=== PATIENT | male | born 1935 | race Hispanic/Latino ===

== ENCOUNTER 2017-05-28 12:05 | Inpatient (IN) | payer MEDICARE, OTHER ==
--- NOTE | 2017-05-28 13:36 | RAD ---
HISTORY: Admission film COMPARISON: No prior. FINDINGS: LUNGS: Prominent diffuse increased interstitial lung markings bilaterally with scattered nodular densities throughout both lungs. Prominent consolidative airspace opacification in the mid to lower lung zones with small bilateral pleural effusions. Biapical pleural thickening with upper lobe granulomatous changes. PLEURA: As above. CARDIOVASCULAR: Cardiomegaly. OSSEOUS STRUCTURES: Degenerative changes in the spine and shoulders. VISUALIZED UPPER ABDOMEN: Normal. OTHER FINDINGS: None. IMPRESSION: Prominent diffuse increased interstitial lung markings bilaterally with scattered nodular densities throughout both lungs. Prominent consolidative airspace opacification in the mid to lower lung zones with small bilateral pleural effusions. Biapical pleural thickening with upper lobe granulomatous changes.
[2017-05-28 13:52] LABS: BASO % 0.6 % (0.0-2.0); EOS # 0.1 K/uL (0.0-0.7); EOS % 2.3 % (0.0-4.0); LYMPH # 1.1 K/uL (1.0-4.3); LYMPH % 18.5 % (20.0-40.0); MEAN CELL VOLUME 92.5 fL (80.0-94.0); MEAN CORPUSCULAR HEMOGLOBIN 31.6 pg (27.0-31.0); MEAN CORPUSCULAR HGB CONC 34.1 g/dL (33.0-37.0); MONO # 0.8 K/uL (0.0-0.8); MONO % 14.3 % (0.0-10.0); RED CELL DISTRIBUTION WIDTH 13.3 % (11.5-14.5); WHITE BLOOD COUNT 5.7 K/uL (4.8-10.8)
[2017-05-28 14:06] LABS: INR 1.1
[2017-05-28 14:07] LABS: ALB/GLOB RATIO 1.1 (1.0-2.1); ALKALINE PHOSPHATASE 99 U/L (38-126); ALT/SGPT 42 U/L (21-72); AST/SGOT 26 U/L (17-59); BILIRUBIN,TOTAL 0.9 mg/dL (0.2-1.3); BLOOD UREA NITROGEN 14 mg/dL (9-20); CALCIUM 8.6 mg/dl (8.6-10.4); CARBON DIOXIDE 30 mmol/L (22-30); CHLORIDE 99 mmol/L (98-107); CHOLESTEROL 110 mg/dL (0-199); GFR AFRICAN-AMERICAN > 60; GLUCOSE,RANDOM 87 mg/dL (75-110); POTASSIUM 4.8 mmol/L (3.6-5.2); SODIUM 140 mmol/L (132-148); TOTAL PROTEIN 6.9 g/dL (6.3-8.3)
[2017-05-28 14:12] LABS: RBC URINE < 1 /hpf (0-3); URINE BILIRUBIN NEGATIVE (NEGATIVE); URINE BLOOD NEGATIVE (NEGATIVE); URINE COLOR Yellow (YELLOW); URINE GLUCOSE (UA) NORMAL (Normal); URINE KETONE NEGATIVE (NEGATIVE); URINE LEUKOCYTE ESTERASE NEG Leu/uL (Negative); URINE PROTEIN NEGATIVE (NEGATIVE); URINE UROBILINOGEN NORMAL mg/dL (0.2-1.0); WBC URINE 1 /hpf (0-5)
--- NOTE | 2017-05-28 14:13 | C.PDOC ---
History Of Present Illness 81 y/o male with Hx of Vertigo presents to ED for evaluation of frequent falls for 3 days secondary to dizziness. Patient states he feels vertiginous prior to falls. Patient denies loc, head injury, nausea, vomiting or any other complaints at this time. Time Seen by Provider: 05/28/17 13:06 Chief Complaint (Nursing): Dizziness/Lightheaded History Per: Patient History/Exam Limitations: no limitations Onset/Duration Of Symptoms: Days Current Symptoms Are (Timing): Still Present Past Medical History Reviewed: Historical Data, Nursing Documentation, Vital Signs Vital Signs: Last Vital Signs Temp 97.9 F 05/28/17 12:22 Pulse 63 05/28/17 12:22 Resp 20 05/28/17 12:22 BP 154/81 H 05/28/17 12:22 Pulse Ox 98 05/28/17 14:25 Surgical History: No Surg Hx Family History: States: No Known Family Hx - Social History Hx Alcohol Use: No Hx Substance Use: No Review Of Systems Except As Marked, All Systems Reviewed And Found Negative. Constitutional: Negative for: Fever, Chills Eyes: Negative for: Vision Change Cardiovascular: Negative for: Chest Pain Respiratory: Negative for: Shortness of Breath Gastrointestinal: Negative for: Nausea, Vomiting Skin: Negative for: Rash Neurological: Positive for: Dizziness. Negative for: Weakness, Numbness Physical Exam - Physical Exam Appears: Non-toxic, No Acute Distress Skin: Warm, Other (Abrasion to left tibia, mild contusion to left lateral rib non tender) Head: Atraumatic Eye(s): bilateral: Normal Inspection Oral Mucosa: Moist Neck: Normal ROM, Supple Chest: Symmetrical Cardiovascular: Rhythm Regular, No Murmur Respiratory: Normal Breath Sounds, No Rales, No Rhonchi, No Wheezing Gastrointestinal/Abdominal: Soft, No Tenderness, No Guarding, No Rebound Neurological/Psych: Oriented x3 ED Course And Treatment - Laboratory Results Result Diagrams: 05/28/17 13:48 05/28/17 13:48 Lab Interpretation: Normal (UA neg.) ECG: Interpreted By Me ECG Rhythm: Sinus Rhythm, R BBB ECG Interpretation: Normal Rate From EC O2 Sat by Pulse Oximetry: 98 (RA) Pulse Ox Interpretation: Normal - Radiology CXR: Interpreted by Me, Read By Radiologist CXR Interpretation: Yes: Infiltrates (+ b/l infiltrates?) Progress Note: rocephin, azithromycin, Reevaluation Time: 15:30 Reassessment Condition: Improved - Physician Consult Information Outcome Of Conversation: 1330, 1430, 1520, d/w Dr. Florez, covering pt's for Dr. Carolina Lewis, ok to Obs. Medical Decision Making Medical Decision Making: Discussed with Dr. Florez who wants patient to be admitted for further evaluation 1530: ? b/l pna provoking old vertigo s/s. w/u neg, CXR + b/l infiltrates, abx for CAP started empirically. Disposition Doctor Will See Patient In The: Hospital Counseled Patient/Family Regarding: Studies Performed, Diagnosis - Disposition Disposition: HOSPITALIZED Disposition Time: 15:31 Condition: GOOD Forms: [facility] (Setswana) - Clinical Impression Clinical Impression: Vertigo, Pneumonia - Scribe Statement The provider has reviewed the documentation as recorded by the Zelalemibdafne Mcarthur All medical record entries made by the Zelalemibdafne were at my direction and personally dictated by me. I have reviewed the chart and agree that the record accurately reflects my personal performance of the history, physical exam, medical decision making, and the department course for this patient. I have also personally directed, reviewed, and agree with the discharge instructions and disposition.
[2017-05-28] MEDS ORDERED: Azithromycin 500 MG in Sodium Chloride 0.9% 250 ML IV STA (14:27)
[2017-05-28] MEDS ORDERED: cefTRIAXone IV 1 gm in Dextros 50 ML IV ONE (14:27)
[2017-05-28] MEDS ORDERED: Vancomycin 1 GM 0 GM/0 ML BAG IVPB ONE (15:58)
[2017-05-28] MEDS ORDERED: cefTRIAXone IV 1 gm in Dextros 50 ML IVPB ONE (15:59)
--- NOTE | 2017-05-28 16:02 | CT ---
PROCEDURE: CT HEAD WITHOUT CONTRAST. HISTORY: falls, dizzy, ? bleed/SDH COMPARISON: None available. TECHNIQUE: Axial computed tomography images were obtained through the head/brain without intravenous contrast. Radiation dose: Total exam DLP = 838 mGy-cm. This CT exam was performed using one or more of the following dose reduction techniques: Automated exposure control, adjustment of the mA and/or kV according to patient size, and/or use of iterative reconstruction technique. FINDINGS: HEMORRHAGE: No intracranial hemorrhage. BRAIN: No mass effect or edema. Mild diffuse cerebral atrophy chronic microangiopathy are identified. No definite cortical lucency is appreciate suggests an acute or subacute brain infarction at this time. No suspicious extra-axial fluid collection identified. Posterior fossa contents unremarkable as well as the brainstem. VENTRICLES: Unremarkable. No hydrocephalus. CALVARIUM: Unremarkable. PARANASAL SINUSES: Unremarkable as visualized. No significant inflammatory changes. MASTOID AIR CELLS: Unremarkable as visualized. No inflammatory changes. OTHER FINDINGS: None. IMPRESSION: Mild age related neuro degenerative changes are identified without definite acute intracranial findings. Consider follow-up CT or MRI as clinically warranted.
[2017-05-28] MEDS ORDERED: Azithromycin 500mg/250ML NS 500 MG/250 ML BAG IVPB ONE (16:32)
--- NOTE | 2017-05-28 18:37 | CP.PCM.CON ---
History of Present Illness - History of Present Illness History of Present Illness: INFECTIOUS DISEASE CONSULT; HPI; .81-year-old male who presented to [facility] on 05/28/17 with history of frequent falls and vertigo for 3 days prior to admission. Patient states he was sitting on a chair and when he got up he felt dizzy and fell. Presently complaining of cough and rib cage pain left-sided and a small laceration he sustained on his right lower extremity. Patient also states he did not lose his consciousness or had any head injury. Denies any nausea vomiting. Patient also states he was complaining of sore throat and some congestion and he was prescribed by mouth Zithromax by his private M.D. Chest x-ray on admission showed consolidated airspace opacification mid to lower lung zones and small bilateral pleural effusions. Some apical pleural thickening was also noted consistent with old granulomatous disease.CT HEAD ON ADMISSION WAS UNREMARKABLE WITH NO EVIDENCE OFF SUBDURAL, INFARCT OR HEMORRHAGE. Patient denies any previous major medical problems and states he was not on any medications. Patient denies any recent history of sick contacts or recent travel. Patient was given IV Rocephin and Zithromax one dose in the ER.. Infectious disease consultation requested by PMD for pneumonia/sepsis. PMH; NEGATIVE FOR DIABETES MELLITUS, HTN, ASTHMA, COPD, SEIZURE DISORDER. Surgical History: No Surg Hx Family History: States: No Known Family Hx - Social History Hx Alcohol Use: No Hx Substance Use: No ALLERGY; NKA Review of Systems - Constitutional Constitutional: absent: Chills, Fever, Headache - EENT Eyes: absent: Blurred Vision, Floaters, Photophobia, Other Visual Disturbances, Loss of Vision Nose/Mouth/Throat: Nasal Congestion, Post Nasal Drip, Sore Throat - Cardiovascular Cardiovascular: Leg Ulcers (right leg excoriation which is dry.). absent: Chest Pain, Pedal Edema - Respiratory Respiratory: Cough, Pain with Coughing. absent: Dyspnea on Exertion, Excessive Mucous Production - Gastrointestinal Gastrointestinal: absent: Abdominal Pain, Nausea, Vomiting - Genitourinary Genitourinary: absent: Dysuria, Hematuria, Nocturia, Urinary Hesitance - Neurological Neurological: Dizziness, Vertigo. absent: Headaches, Syncope - Hematologic/Lymphatic Hematologic: As Per HPI. absent: Lymphadenopathy Past Patient History - Past Social History Smoking Status: Never Smoked - PSYCHIATRIC Hx Substance Use: No - SURGICAL HISTORY Hx Surgeries: No Meds Allergies/Adverse Reactions: Allergies Allergy/AdvReac Type Severity Reaction Status Date / Time No Known Allergies Allergy Verified 05/28/17 12:43 Physical Exam - Constitutional Appears: No Acute Distress - Head Exam Head Exam: NORMAL INSPECTION - Eye Exam Eye Exam: EOMI, PERRL. absent: Nystagmus - ENT Exam ENT Exam: Normal Oropharynx - Neck Exam Neck exam: Positive for: Normal Inspection. Negative for: Meningismus - Respiratory Exam Respiratory Exam: Rhonchi (bilaterally.), NORMAL BREATHING PATTERN - Cardiovascular Exam Cardiovascular Exam: REGULAR RHYTHM, +S1, +S2 - GI/Abdominal Exam GI & Abdominal Exam: Normal Bowel Sounds, Soft. absent: Organomegaly - Extremities Exam Extremities exam: Positive for: pedal pulses present. Negative for: calf tenderness, pedal edema - Neurological Exam Neurological exam: Alert, CN II-XII Intact, Reflexes Normal - Psychiatric Exam Psychiatric exam: Normal Mood - Skin Skin Exam: Normal Color, Warm Results - Vital Signs Recent Vital Signs: Last Vital Signs Temp 97.9 F 05/28/17 12:22 Pulse 63 05/28/17 12:22 Resp 20 05/28/17 12:22 BP 154/81 H 05/28/17 12:22 Pulse Ox 98 05/28/17 15:32 - Labs Result Diagrams: 05/28/17 13:48 05/28/17 13:48 - Imaging and Cardiology Chest x-ray Status: Report reviewed by me (see reports.) Assessment & Plan (1) Pneumonia Status: Acute (2) Vertigo Status: Acute - Assessment and Plan (Free Text) Plan: PLAN; ESR, CRP. THROAT CULTURE RAPID INFLUENZA ANTIGEN TEST. ATYPICAL TITERS. SPUTUM gRAM STAIN AND CULTURE. CONTINUE iv ROCEPHIN 1 G EVERY 12 HOURLY. 05/28/17. CONTINUE iv ZITHROMAX 500 MG ONCE DAILY.05/28/17. X-RAY RIB CAGE LEFT-SIDED RULE OUT FRACTURE RIBS LEFT CHEST WALL. DIZZINESS WORKUP PER PMD.
--- NOTE | 2017-05-28 20:08 | CP.PCM.HP ---
History of Present Illness - History of Present Illness History of Present Illness: COMPREHENSIVE HISTORY & PHYSICAL EXAM HPI PATIENT IS AN 81 YEARS OLD MALE WITH NO MAJOR HISTORY IN THE PAST HAS A HISTORY OF VERTIGO AND FREQUENT FALLS. RECENTLY PATIENT'S FALL IS INCREASED IN INTENSITY AND SEVERITY. PATIENT ALSO RECENTLY ALSO SEEN BY PMD AND WAS GIVEN ZITHROMAX AND ANTICONGESTIVE MEDICATION. PATIENT IS ALSO COMPLAINING OF UPPER RESPIRATORY TRACT CONGESTION WITH SORE THROAT AND SLIGHT POSTNASAL DRIP. TODAY PATIENT HAD NEAR SYNCOPAL EPISODE WAS FOUND ON THE FLOOR BROUGHT TO THE EMERGENCY ROOM. WORKUP IN THE ER SHOWED PATIENT HAD BILATERAL LOWER LOBE INFILTRATES, NORMAL. CAT SCAN OF THE HEAD AND NO FRACTURES. PAST HIST. No history of hypertension, diabetes, coronary artery disease, stroke, cancers or any operations. PERSONAL HIST: Smoking. N Alcohol. N Allergy N Travel_- . FAMILY HIST : ROS : Constitutional: Negative for weight change, chills, night sweats, fatigue and usage of assist device. Eyes: Negative for redness, swelling, itching, discharge, vision changes, blurry vision, double vision, glaucoma, cataracts, Ears: Negative for hearing loss, ringing, , tinnitus, vertigo Nose: Negative for rhinorrhea, stuffiness, sniffing, itching, postnasal drip, discoloration, nasal congestion and epistaxis. Throat: Negative for throat clearing, sore throat, hoarseness, difficulty swallowing and difficulty speaking. Respiratory: pos for cough, chest tightness, sputum or phlegm, no chronic cough, hemoptysis, wheezing, snoring at night, pleuritic chest pain and daytime somnolence. Cardiovascular: Negative for chest pain, palpitations, orthopnea, PND, Edema of legs, leg cramps, angina, claudication, , irregular heartbeat, Neurology: Negative for irritability, muscle weakness, numbness and tingling, seizures, tremors, migraines, slurred speech, memory loss, mood changes, recurrent headaches Gastrointestinal: Negative for difficulty swallowing, diarrhea, constipation, black stools, rectal bleeding, nausea, flatulence, reflux, poor appetite, changes in bowel habits, abdominal pain Genitourinary: Negative for frequent urination, hematuria, discharge, incontinence, urinary retention, frequent UTI, Psychiatric: Negative for depression, anxiety/panic, suicidal tendencies, Musculoskeletal: Negative for swollen joints, back pain, , neck pain, morning stiffness of joints, . Skin: Negative for rash, ulcers, itching, dry skin and pigmented lesions. P/E: Constitutional: Appears stated age and in no apparent distress. Head: Normocephalic. Ears: External ear canals patent without inflammation. Tympanic membranes intact with normal light reflex and landmark. Eyes: Pupils are central, bilaterally equal, symmetrical and reacts to light with normal movements and no icterus or pallor. Nose: External nares are patent. Mucosa is pink Mouth-Throat: Good general appearance and condition. No post-pharyngeal/oropharyngeal erythema and tonsillar hypertrophy. Good dental hygiene. Neck-Lymphatic: Neck is supple with normal ROM, no thyromegaly, lymph nodes or masses. JVD is normal with no carotid bruit. Lungs bilateral basal rhonchi. Cardiovascular: S1 and S2 are normal with no murmurs, gallops and rub. GI Exam: No hepatomegaly. Abdomen is soft and non-tender. No Organomegaly , masses or hernias are evident and bowel sounds are normal and active. Neurology: Higher function and all cranial nerves intact, with no gross motor or sensory deficit. Superficial and deep reflexes are normal with downwards planters. No cerebellar deficit with normal gait. Musculoskeletal: No tender spots with normal curvature of the spine with no swelling or restricted ROM of the small and large joints. Extremities: Homans sign absent. Intact pulses with no pitting edema, calf tenderness or skin color changes. Skin: No rash, eruptions or abnormal skin pigmentation LAB/RADIOLOGY: ASSESMENT : #1 bilateral pneumonia, etiology to be determined. #2 frequent falls with near syncopal episodes, with a history of vertigo. Plan. ID evaluation. IV antibiotics and neurology workup. Present on Admission - Present on Admission Any Indicators Present on Admission: No Past Patient History - Past Social History Smoking Status: Never Smoked - PSYCHIATRIC Hx Substance Use: No - SURGICAL HISTORY Hx Surgeries: No Meds Allergies/Adverse Reactions: Allergies Allergy/AdvReac Type Severity Reaction Status Date / Time No Known Allergies Allergy Verified 05/28/17 12:43 Results - Vital Signs Recent Vital Signs: Last Vital Signs Temp 99.2 F 05/28/17 19:15 Pulse 93 H 05/28/17 19:15 Resp 18 05/28/17 19:15 BP 133/69 05/28/17 19:15 Pulse Ox 97 05/28/17 19:15 - Labs Result Diagrams: 05/28/17 13:48 05/28/17 13:48
[2017-05-28] MEDS ORDERED: Pneumococcal 23-Valent Vaccine IM ONE (22:33)
[2017-05-29 08:20] LABS: BASO % 0.4 % (0.0-2.0); EOS # 0.1 K/uL (0.0-0.7); EOS % 1.3 % (0.0-4.0); HEMATOCRIT 35.8 % (35.0-51.0); LYMPH # 1.2 K/uL (1.0-4.3); LYMPH % 19.1 % (20.0-40.0); MEAN CELL VOLUME 92.4 fL (80.0-94.0); MEAN CORPUSCULAR HEMOGLOBIN 31.4 pg (27.0-31.0); MEAN PLATELET VOLUME 8.2 fL (7.2-11.7); MONO % 16.2 % (0.0-10.0); RED CELL DISTRIBUTION WIDTH 13.2 % (11.5-14.5); WHITE BLOOD COUNT 6.3 K/uL (4.8-10.8)
[2017-05-29 08:29] LABS: ALB/GLOB RATIO 1.1 (1.0-2.1); ALKALINE PHOSPHATASE 91 U/L (38-126); ALT/SGPT 38 U/L (21-72); AST/SGOT 23 U/L (17-59); BLOOD UREA NITROGEN 13 mg/dL (9-20); CALCIUM 8.5 mg/dl (8.6-10.4); CARBON DIOXIDE 25 mmol/L (22-30); CHLORIDE 101 mmol/L (98-107); GFR AFRICAN-AMERICAN > 60; GLUCOSE,RANDOM 85 mg/dL (75-110); POTASSIUM 4.2 mmol/L (3.6-5.2); SODIUM 139 mmol/L (132-148); TOTAL PROTEIN 6.4 g/dL (6.3-8.3)
[2017-05-29] MEDS: Azithromycin 500 MG in Sodium Chloride 0.9% 250 ML IVPB SCH (10:08)
--- NOTE | 2017-05-29 12:37 | CP.PCM.PN ---
Subjective - Date & Time of Evaluation Date of Evaluation: 05/29/17 Time of Evaluation: 12:35 - Subjective Subjective: CHIEF COMPLAINTS TODAY : MILD COUGH VERTIGO ON WALKING ROS. HEENT : N. Resp : No wheezing ,pleuritic CP ,or hemoptysis Cardio : No anginal CP, PND, orthopnea, palpitation GI : No abd.pain, n/v ,diarrhea or GI bleeding . ACADEMIC ADVISER : No headache, vertigo, focal deficit. Musculoskel : No joint swelling , Derm : No rash Psych : Normal affect. Ext : No swelling ,calf pain PE. Pt. is alert awake in no distress. V.S As noted in the chart Head ,ear nose,throat and eyes : Normal. Neck : Supple with normal carotids. Lungs: BASAL RONCHI Heart : S1 & S2 normal with S4. No murmur. Abd : Soft non tender with normal bowel sounds. Neuro : Moves all ext. with no localized deficit. Ext : No edema with intact pulses.Non tender calves Derm : No rashes or decubitus ulcer. LABS/RADIOLOGY: TNI NEG ASSESSMENT/PLAN : IV AB NEB PRN Objective - Vital Signs/Intake and Output Vital Signs (last 24 hours): Temp Pulse Resp BP Pulse Ox 97 F L 71 21 145/74 95 05/29/17 08:41 05/29/17 08:41 05/29/17 08:41 05/29/17 08:41 05/29/17 08:41 Intake and Output: 05/29/17 05/29/17 11:59 23:59 Intake Total 340 Balance 340 - Medications Medications: Current Medications Heparin Sodium (Porcine) (Heparin) 5,000 units SC Q12 [facility] Last Admin: 05/29/17 10:10 Dose: 5,000 units Azithromycin 500 mg/ Sodium (Chloride) 250 mls @ 250 mls/hr IVPB DAILY [facility] Last Admin: 05/29/17 10:08 Dose: 250 mls/hr Ceftriaxone Sodium 1 gm/ (Sodium Chloride) 100 mls @ 100 mls/hr IVPB Q12H [facility] Last Admin: 05/29/17 02:59 Dose: 100 mls/hr Pneumococcal Polyvalent Vaccine (Pneumovax 23 Vaccine) 0.5 ml IM .ONCE ONE Stop: 05/31/17 10:01 Primidone (Mysoline) 50 mg PO Q12H [facility] Last Admin: 05/29/17 10:08 Dose: 50 mg - Labs Labs: 05/29/17 08:09 05/29/17 08:09 PT 12.4 SECONDS (9.7-12.2) H 05/28/17 13:48 INR 1.1 05/28/17 13:48 APTT 38 SECONDS (21-34) H 05/28/17 13:48
--- NOTE | 2017-05-29 14:36 | RAD ---
PROCEDURE: Radiographs of the Chest and Left Ribs. HISTORY: S/P FALL R/O RIB FRACTURE COMPARISON: 05/28/2017 at 1325 hour. TECHNIQUE: Frontal radiograph of the chest and multiple oblique radiographs of the left ribs were obtained. FINDINGS: LEFT RIBS: No fracture or focal lesion visualized. Generalized osteopenia limits optimal evaluation LUNGS: The vague fine diffuse interstitial increased lung markings are renoted. Linear discoid atelectasis and/or scarring at at each lung base noted PLEURA: No pneumothorax or pleural fluid. Vague opacities/ inferred pleural thickening reaction right lateral eron thorax. For this if further evaluation is needed consider CT chest . Biapical pleural thickening. Calcified granulomatous lymph nodes and are central calcified granuloma CARDIOVASCULAR: Minimal cardiomegaly probable. No pulmonary vascular congestion. The right hilum and right infrahilar soft tissues appear slightly more prominent on this exam could be technical study That is not as conspicuous/ suggested on the prior study OTHER FINDINGS: None. IMPRESSION: . No left rib fracture. Nonspecific pulmonary and/or pleural changes as above
--- NOTE | 2017-05-29 14:56 | CARD ---
APPROVED REPORT EKG Measurement Heart [id number] <Conclusion> Normal sinus rhythm Right bundle branch block Abnormal ECG
--- NOTE | 2017-05-29 15:32 | CP.PCM.PN ---
Subjective - Date & Time of Evaluation Date of Evaluation: 05/29/17 Time of Evaluation: 15:32 - Subjective Subjective: CHIEF COMPLAINTS TODAY : afebrile, c/o dizziness on ambulating. Mild cough and sore throat. Denies any expectoration. Left rib cage tenderness ROS. HEENT : N. Resp : No wheezing ,pleuritic CP ,or hemoptysis Cardio : No anginal CP, PND, orthopnea, palpitation GI : No abd.pain, n/v ,diarrhea or GI bleeding . 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 Musculoskel : No joint swelling , Derm : No rash Psych : Normal affect. Ext : No swelling ,calf pain PE. Pt. is alert awake in no distress. V.S As noted in the chart Head ,ear nose,throat and eyes : Normal. Neck : Supple with normal carotids. Lungs: BASAL RONCHI Heart : S1 & S2 normal with S4. No murmur. Abd : Soft non tender with normal bowel sounds. Neuro : Moves all ext. with no localized deficit. Ext : No edema with intact pulses.Non tender calves Derm : No rashes or decubitus ulcer. LABS/RADIOLOGY: Influenza A and B antigen negative .Mycoplasma IgM negative. blood cultures negative to date. TNI NEG x-ray left rib cage -ve fracture./Osteopenia. Objective - Vital Signs/Intake and Output Vital Signs (last 24 hours): Temp Pulse Resp BP Pulse Ox 97 F L 73 21 164/86 H 98 05/29/17 08:41 05/29/17 12:30 05/29/17 08:41 05/29/17 12:30 05/29/17 12:30 Intake and Output: 05/29/17 05/29/17 06:59 18:59 Intake Total 340 1030 Balance 340 1030 - Medications Medications: Current Medications Heparin Sodium (Porcine) (Heparin) 5,000 units SC Q12 [facility] Last Admin: 05/29/17 10:10 Dose: 5,000 units Azithromycin 500 mg/ Sodium (Chloride) 250 mls @ 250 mls/hr IVPB DAILY [facility] Last Admin: 05/29/17 10:08 Dose: 250 mls/hr Ceftriaxone Sodium 1 gm/ (Sodium Chloride) 100 mls @ 100 mls/hr IVPB Q12H [facility] Last Admin: 05/29/17 14:21 Dose: 100 mls/hr Pneumococcal Polyvalent Vaccine (Pneumovax 23 Vaccine) 0.5 ml IM .ONCE ONE Stop: 05/31/17 10:01 Primidone (Mysoline) 50 mg PO Q12H [facility] Last Admin: 05/29/17 10:08 Dose: 50 mg - Labs Labs: 05/29/17 08:09 05/29/17 08:09 PT 12.4 SECONDS (9.7-12.2) H 05/28/17 13:48 INR 1.1 05/28/17 13:48 APTT 38 SECONDS (21-34) H 05/28/17 13:48 Assessment and Plan (1) Pneumonia Status: Acute (2) Vertigo Status: Acute - Assessment and Plan (Free Text) Plan: CONTINUE iv ROCEPHIN 1 G EVERY 12 HOURLY. 05/28/17. CONTINUE iv ZITHROMAX 500 MG ONCE DAILY.05/28/17. continue nebulizer therapy. DIZZINESS WORKUP PER PMD.
[2017-05-29 16:10] VITALS: RESP 20
[2017-05-30 07:46] LABS: BASO % 0.4 % (0.0-2.0); EOS # 0.1 K/uL (0.0-0.7); EOS % 1.4 % (0.0-4.0); HEMATOCRIT 35.9 % (35.0-51.0); LYMPH # 1.3 K/uL (1.0-4.3); LYMPH % 19.7 % (20.0-40.0); MEAN CELL VOLUME 93.2 fL (80.0-94.0); MEAN CORPUSCULAR HEMOGLOBIN 31.3 pg (27.0-31.0); MEAN CORPUSCULAR HGB CONC 33.6 g/dL (33.0-37.0); MEAN PLATELET VOLUME 8.2 fL (7.2-11.7); MONO % 15.3 % (0.0-10.0); RED CELL DISTRIBUTION WIDTH 13.4 % (11.5-14.5); WHITE BLOOD COUNT 6.5 K/uL (4.8-10.8)
[2017-05-30 08:13] LABS: CHLORIDE 102 mmol/L (98-107); SODIUM 136 mmol/L (132-148)
[2017-05-30 08:14] LABS: POTASSIUM 4.2 mmol/L (3.6-5.2)
[2017-05-30 08:16] LABS: AST/SGOT 28 U/L (17-59); BILIRUBIN,TOTAL 0.8 mg/dL (0.2-1.3); CARBON DIOXIDE 26 mmol/L (22-30); GFR AFRICAN-AMERICAN > 60
[2017-05-30 08:17] LABS: ALKALINE PHOSPHATASE 94 U/L (38-126); ALT/SGPT 37 U/L (21-72); BLOOD UREA NITROGEN 13 mg/dL (9-20); CALCIUM 8.1 mg/dl (8.6-10.4); GLUCOSE,RANDOM 91 mg/dL (75-110); TOTAL PROTEIN 6.2 g/dL (6.3-8.3)
[2017-05-30] MEDS ORDERED: Perflutren Lipid Microsphere 1.5 ML SUS IV ONE (09:25)
[2017-05-30] MEDS: Azithromycin 500 MG in Sodium Chloride 0.9% 250 ML IVPB SCH (10:59)
--- NOTE | 2017-05-30 13:09 | CP.PCM.PN ---
Subjective - Date & Time of Evaluation Date of Evaluation: 05/30/17 Time of Evaluation: 13:09 - Subjective Subjective: CHIEF COMPLAINTS TODAY : MILD COUGH VERTIGO ON WALKING ROS. HEENT : N. Resp : No wheezing ,pleuritic CP ,or hemoptysis Cardio : No anginal CP, PND, orthopnea, palpitation GI : No abd.pain, n/v ,diarrhea or GI bleeding . PERSONAL CARER : No headache, vertigo, focal deficit. Musculoskel : No joint swelling , Derm : No rash Psych : Normal affect. Ext : No swelling ,calf pain PE. Pt. is alert awake in no distress. V.S As noted in the chart Head ,ear nose,throat and eyes : Normal. Neck : Supple with normal carotids. Lungs: BASAL RONCHI Heart : S1 & S2 normal with S4. No murmur. Abd : Soft non tender with normal bowel sounds. Neuro : Moves all ext. with no localized deficit. Ext : No edema with intact pulses.Non tender calves Derm : No rashes or decubitus ulcer. LABS/RADIOLOGY: TNI NEG ASSESSMENT/PLAN : IV AB CT CHEST Objective - Vital Signs/Intake and Output Vital Signs (last 24 hours): Temp Pulse Resp BP Pulse Ox 98.2 F 67 20 139/75 96 05/30/17 08:05 05/30/17 08:05 05/30/17 08:05 05/30/17 08:05 05/30/17 08:05 Intake and Output: 05/30/17 05/30/17 11:59 23:59 Intake Total 340 Balance 340 - Medications Medications: Current Medications Heparin Sodium (Porcine) (Heparin) 5,000 units SC Q12 [facility] Last Admin: 05/30/17 10:58 Dose: 5,000 units Azithromycin 500 mg/ Sodium (Chloride) 250 mls @ 250 mls/hr IVPB DAILY [facility] Last Admin: 05/30/17 10:59 Dose: 250 mls/hr Ceftriaxone Sodium 1 gm/ (Sodium Chloride) 100 mls @ 100 mls/hr IVPB Q12H [facility] Last Admin: 05/30/17 02:08 Dose: 100 mls/hr Pneumococcal Polyvalent Vaccine (Pneumovax 23 Vaccine) 0.5 ml IM .ONCE ONE Stop: 05/31/17 10:01 Primidone (Mysoline) 50 mg PO Q12H [facility] Last Admin: 05/30/17 10:58 Dose: 50 mg - Labs Labs: 05/30/17 07:20 05/30/17 07:20 PT 12.4 SECONDS (9.7-12.2) H 05/28/17 13:48 INR 1.1 05/28/17 13:48 APTT 38 SECONDS (21-34) H 05/28/17 13:48
[2017-05-30] MEDS ORDERED: Iohexol 350mg/ml 100 ML ONE (16:03)
--- NOTE | 2017-05-30 16:25 | CP.PCM.PN ---
Subjective - Date & Time of Evaluation Date of Evaluation: 05/30/17 Time of Evaluation: 16:25 - Subjective Subjective: CHIEF COMPLAINTS TODAY : afebrile, DENIES CHEST PAIN c/o dizziness on ambulating. Left rib cage tenderness,IMPROVING ROS. HEENT : N. Resp : No wheezing ,pleuritic CP ,or hemoptysis Cardio : No anginal CP, PND, orthopnea, palpitation GI : No abd.pain, n/v ,diarrhea or GI bleeding . 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 Musculoskel : No joint swelling , Derm : No rash Psych : Normal affect. Ext : No swelling ,calf pain PE. Pt. is alert awake in no distress. V.S As noted in the chart Head ,ear nose,throat and eyes : Normal. Neck : Supple with normal carotids. Lungs: BASILAR RONCHI Heart : S1 & S2 normal with S4. No murmur. Abd : Soft non tender with normal bowel sounds. Neuro : Moves all ext. with no localized deficit. Ext : No edema with intact pulses.Non tender calves Derm : No rashes or decubitus ulcer. LABS/RADIOLOGY: REVIEWED LFTS N Influenza A and B antigen negative .Mycoplasma IgM negative. blood cultures negative to date. [facility]NI NEG x-ray left rib cage -ve fracture./Osteopenia. Objective - Vital Signs/Intake and Output Vital Signs (last 24 hours): Temp Pulse Resp BP Pulse Ox 97.6 F 73 20 147/75 96 05/30/17 15:00 05/30/17 15:00 05/30/17 15:00 05/30/17 15:00 05/30/17 15:00 Intake and Output: 05/30/17 05/30/17 06:59 18:59 Intake Total 340 Balance 340 - Medications Medications: Current Medications Heparin Sodium (Porcine) (Heparin) 5,000 units SC Q12 [facility] Last Admin: 05/30/17 10:58 Dose: 5,000 units Azithromycin 500 mg/ Sodium (Chloride) 250 mls @ 250 mls/hr IVPB DAILY [facility] Last Admin: 05/30/17 10:59 Dose: 250 mls/hr Ceftriaxone Sodium 1 gm/ (Sodium Chloride) 100 mls @ 100 mls/hr IVPB Q12H [facility] Last Admin: 05/30/17 14:21 Dose: 100 mls/hr Pneumococcal Polyvalent Vaccine (Pneumovax 23 Vaccine) 0.5 ml IM .ONCE ONE Stop: 05/31/17 10:01 Primidone (Mysoline) 50 mg PO Q12H [facility] Last Admin: 05/30/17 10:58 Dose: 50 mg - Labs Labs: 05/30/17 07:20 05/30/17 07:20 PT 12.4 SECONDS (9.7-12.2) H 05/28/17 13:48 INR 1.1 05/28/17 13:48 APTT 38 SECONDS (21-34) H 05/28/17 13:48 Assessment and Plan (1) Pneumonia Status: Acute (2) Vertigo Status: Acute - Assessment and Plan (Free Text) Plan: CONTINUE iv ROCEPHIN 1 G EVERY 12 HOURLY. 05/28/17. CONTINUE iv ZITHROMAX 500 MG ONCE DAILY.05/28/17. continue nebulizer therapy. DIZZINESS WORKUP PER PMD.CAROTID STUDIES PENDING. REPEAT CHEST X-RAY IN A.M.
--- NOTE | 2017-05-30 18:55 | CT ---
EXAM: CT Chest With Intravenous Contrast EXAM DATE/TIME: Exam ordered 05/30/2017 1:08 PM CLINICAL HISTORY: 81 years old, male; Abnormal findings; Abnormal radiologic exam of lung or chest; Additional info: Abn. Cxr TECHNIQUE: Axial computed tomography images of the chest with intravenous contrast. All CT scans at this facility use one or more dose reduction techniques, viz.: automated exposure control; ma/kV adjustment per patient size (including targeted exams where dose is matched to indication; i.e. head); or iterative reconstruction technique. Coronal and sagittal reformatted images were created and reviewed. CONTRAST: 100 mL of omnipaque 300 administered intravenously. COMPARISON: No relevant prior studies available. FINDINGS: Lungs: There is thickening of the interlobular septa in the nondependent portion of the right upper lung. Coarse subpleural reticular lines are present. Subcarinal and left perihilar calcifications are present. There is a 1.1 cm spiculated density noted in the posterior segment of the right upper lobe (series 5 image 198). A nodular opacity is noted in the posterior segment of the right upper lobe inferiorly measuring 1.4 cm in maximum diameter. (series 5 image 214). Pleural space: There are calcified pleural plaques bilaterally. No pneumothorax. No significant effusion. Heart: Unremarkable. No cardiomegaly. No significant pericardial effusion. Bones/joints: Unremarkable. No acute fracture. No dislocation. Soft tissues: Unremarkable. Vasculature: The ascending thoracic aorta measures 4.1 cm in maximum diameter. Lymph nodes: Unremarkable. No enlarged lymph nodes. Liver: Hepatic parenchymal calcifications are present. Spleen: Splenic calcifications are present. 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 2. 2 nodular opacities in the right lung. One is somewhat spiculated appearance. For low-risk patients recommend follow-up chest CT at 3-6 months. If unchanged consider an additional follow-up CT at 18-24 months. For high-risk patients (smoking history or other known risk factors) initial follow-up chest CT at 3-6 months and if unchanged, 18-24 months. 3. Hepatic and splenic calcifications with calcified mediastinal lymph nodes suggest previous granulomatous infection. 4. 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
--- NOTE | 2017-05-30 22:59 | CARD ---
APPROVED REPORT EXAM: Two-dimensional and M-mode echocardiogram with Doppler, color Doppler with contrast. Other Information Quality : GoodRhythm : NSR INDICATION Dizziness and Vertigo Syncope 2D DIMENSIONS IVSd1.6 (0.7-1.1cm)LVDd3.7 (3.9-5.9cm) PWd1.1 (0.7-1.1cm)LVDs2.3 (2.5-4.0cm) FS (%) 35.9 %LVEF (%)66.4 (>50%) M-Mode DIMENSIONS Left Atrium (MM)3.13 (2.5-4.0cm)Aortic Root4.17 (2.2-3.7cm) Aortic Cusp Exc.2.18 (1.5-2.0cm) Mitral Valve MV E Zxfcxcfr33.3cm/sMV A Emgxmxhz44.6cm/sE/A ratio0.5 TDI E/Lateral E'0.0E/Medial E'0.0 Tricuspid Valve TR Peak Fxrohwkj906cs/sTR Peak Gr.[id number] LEFT VENTRICLE The left ventricle is normal size. There is normal left ventricular wall thickness. Left ventricle systolic function is normal. The Ejection Fraction is 65-70%. There is normal LV segmental wall motion. Tissue Doppler imaging reveals abnormal left ventricular diastolic dysfunction. No left ventricle thrombus noted on this study. RIGHT VENTRICLE The right ventricle is normal size. There is normal right ventricular wall thickness. The right ventricular systolic function is normal. ATRIA The left atrium size is normal. The right atrium size is normal. The interatrial septum is intact with no evidence for an atrial septal defect. AORTIC VALVE The aortic valve is mildly to moderately thickened. No aortic regurgitation is present. There is no aortic valvular stenosis. There is no aortic valvular vegetation. MITRAL VALVE The mitral valve is normal in structure. Mitral annular calcification is mild. There is no evidence of mitral valve prolapse. There is no mitral valve stenosis. There is no mitral valve regurgitation noted. TRICUSPID VALVE The tricuspid valve is normal in structure. There is trace tricuspid regurgitation. Right ventricular systolic pressure is estimated at less than 30 mmHg. There is no pulmonary hypertension. PULMONIC VALVE The pulmonic valve is not well visualized. There is trace pulmonic valvular regurgitation. GREAT VESSELS The aortic root is mildly enlarged. PERICARDIAL EFFUSION There is no significant pericardial effusion. <Conclusion> Left ventricle systolic function is normal. The Ejection Fraction is 65-70%. Diastolic dysfunction. No aortic regurgitation is present. There is no mitral valve regurgitation noted. There is trace tricuspid regurgitation. There is no pulmonary hypertension. There is trace pulmonic valvular regurgitation.
[2017-05-31 08:57] LABS: BASO % 0.5 % (0.0-2.0); EOS # 0.1 K/uL (0.0-0.7); EOS % 1.3 % (0.0-4.0); HEMATOCRIT 39.8 % (35.0-51.0); LYMPH % 15.2 % (20.0-40.0); MEAN CELL VOLUME 93.3 fL (80.0-94.0); MEAN CORPUSCULAR HEMOGLOBIN 31.4 pg (27.0-31.0); MEAN CORPUSCULAR HGB CONC 33.6 g/dL (33.0-37.0); MEAN PLATELET VOLUME 8.1 fL (7.2-11.7); MONO # 0.8 K/uL (0.0-0.8); MONO % 11.8 % (0.0-10.0); RED CELL DISTRIBUTION WIDTH 13.3 % (11.5-14.5); WHITE BLOOD COUNT 6.6 K/uL (4.8-10.8)
[2017-05-31 09:19] LABS: CHLORIDE 100 mmol/L (98-107)
--- NOTE | 2017-05-31 09:19 | RAD ---
Chest x-ray two views History: Pneumonia. Comparison: 05/29/2017 Findings: Prominent dense biapical pleural thickening with upper lobe opacification and granulomatous changes. Diffuse circumferential pleural thickening. Rounded density measuring 2.5 centimeters in the right midlung zone of uncertain clinical etiology. Underlying mass lesion cannot be excluded. Prominent diffuse increased interstitial lung markings with prominent patchy bibasilar airspace opacities. Scattered nodular densities in both lung sebastian. Linear atelectatic changes in the left mid lung zone. Tortuous ectatic aorta. Mild cardiomegaly. Degenerative changes in the spine. Impression: Prominent dense biapical pleural thickening with upper lobe opacification and granulomatous changes. Diffuse circumferential pleural thickening. Rounded density measuring 2.5 centimeters in the right midlung zone of uncertain clinical etiology. Underlying mass lesion cannot be excluded. Prominent diffuse increased interstitial lung markings with prominent patchy bibasilar airspace opacities. Scattered nodular densities in both lung sebastian. Linear atelectatic changes in the left mid lung zone. Tortuous ectatic aorta. Mild cardiomegaly. Further evaluation with chest CT is recommended if indicated.
[2017-05-31 09:20] LABS: SODIUM 138 mmol/L (132-148)
[2017-05-31 09:22] LABS: ALB/GLOB RATIO 1.1 (1.0-2.1); ALKALINE PHOSPHATASE 114 U/L (38-126); AST/SGOT 28 U/L (17-59); BILIRUBIN,TOTAL 0.8 mg/dL (0.2-1.3); BLOOD UREA NITROGEN 12 mg/dL (9-20); CARBON DIOXIDE 27 mmol/L (22-30); GFR AFRICAN-AMERICAN > 60
[2017-05-31 09:23] LABS: ALT/SGPT 40 U/L (21-72); CALCIUM 8.5 mg/dl (8.6-10.4); GLUCOSE,RANDOM 136 mg/dL (75-110)
[2017-05-31] MEDS ORDERED: Pneumococcal 23-Valent Vaccine IM ONE (10:00)
[2017-05-31] MEDS: Azithromycin 500 MG in Sodium Chloride 0.9% 250 ML IVPB SCH (11:08)
--- NOTE | 2017-05-31 11:48 | CP.PCM.PN ---
Subjective - Date & Time of Evaluation Date of Evaluation: 05/31/17 Time of Evaluation: 11:47 - Subjective Subjective: CHIEF COMPLAINTS TODAY : MILD COUGH VERTIGO ON WALKING CT CHEST NOTED ROS. HEENT : N. Resp : No wheezing ,pleuritic CP ,or hemoptysis Cardio : No anginal CP, PND, orthopnea, palpitation GI : No abd.pain, n/v ,diarrhea or GI bleeding . HEAD OF ACADEMIC TECHNOLOGY : No headache, vertigo, focal deficit. Musculoskel : No joint swelling , Derm : No rash Psych : Normal affect. Ext : No swelling ,calf pain PE. Pt. is alert awake in no distress. V.S As noted in the chart Head ,ear nose,throat and eyes : Normal. Neck : Supple with normal carotids. Lungs: BASAL RONCHI Heart : S1 & S2 normal with S4. No murmur. Abd : Soft non tender with normal bowel sounds. Neuro : Moves all ext. with no localized deficit. Ext : No edema with intact pulses.Non tender calves Derm : No rashes or decubitus ulcer. LABS/RADIOLOGY: TNI NEG ASSESSMENT/PLAN : IV AB PT WILL NEED FURTHER EVAL OF NODULES DUE TO ASBESTOSIS AND SMOKING Objective - Vital Signs/Intake and Output Vital Signs (last 24 hours): Temp Pulse Resp BP Pulse Ox 97.9 F 73 20 122/70 95 05/31/17 07:22 05/31/17 07:22 05/31/17 07:22 05/31/17 07:22 05/31/17 07:22 Intake and Output: 05/30/17 05/31/17 23:59 11:59 Intake Total 590 340 Balance 590 340 - Medications Medications: Current Medications Heparin Sodium (Porcine) (Heparin) 5,000 units SC Q12 [facility] Last Admin: 05/31/17 11:07 Dose: 5,000 units Azithromycin 500 mg/ Sodium (Chloride) 250 mls @ 250 mls/hr IVPB DAILY [facility] Last Admin: 05/31/17 11:08 Dose: 250 mls/hr Ceftriaxone Sodium 1 gm/ (Sodium Chloride) 100 mls @ 100 mls/hr IVPB Q12H [facility] Last Admin: 05/31/17 02:52 Dose: 100 mls/hr Primidone (Mysoline) 50 mg PO Q12H [facility] Last Admin: 05/31/17 11:07 Dose: 50 mg - Labs Labs: 05/31/17 08:47 05/31/17 08:47 PT 12.4 SECONDS (9.7-12.2) H 05/28/17 13:48 INR 1.1 05/28/17 13:48 APTT 38 SECONDS (21-34) H 05/28/17 13:48
--- NOTE | 2017-05-31 16:50 | CP.PCM.CON ---
History of Present Illness - History of Present Illness History of Present Illness: Chief complaint: Pulmonary evaluation for abnormal CAT scan. History present illness: 81-year-old male with no significant past medical history other than hypertension came to the emergency room today is ago after he fell from the bed and had a some injuries in the head and also in the hand. Patient was sitting, and it, trying to get up, and he felt dizzy and had slight down on the bed, and he had a some lacerations in the leg. Upon admission, there was no evidence of any fractures identified. CAT scan of the head was negative. Meanwhile patient was also complaining of some cough for some time, cough mostly at evening time a night, also patient was having some mucus production. he did not have any history of lung problems in the past. Patient did not have any fever, chills nausea vomiting. He did not lose consciousness. Did not have any other major medical history in the past. Past medical history: Hypertension Allergy: No known drug allergy. Family history noncontributory. No history of cancer in the family. Personal history: Patient used to be a smoker in the past, almost 30 cigarettes a day, more than 40 years ago for short time. 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 But there was not clear history of asbestosis exposure. No dust or fume exposure in the past. Review of systems: No headache or visual symptoms. Patient is able to stand up, but still having some weakness, able to stand up without any difficulty. He denies any hemoptysis, minimal cough noted, with minimal wheezing. On examination: Vitals reviewed HEENT PERRLA, neck supple No thyromegaly was noted and no cervical adenopathy noted Bilateral minimal expiratory wheezing noted, more on the left side CVS regular heart sound, no murmur Abdomen soft and no organomegaly Extremities no pedal edema, no leg swelling, pedal pulses are good. 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 CT of the chest is reviewed. Patient has having bilateral pleural thickening noted, especially in the lower lung sebastian, associate with calcification, most likely suggestive of asbestosis exposure. Also patient is having right lung. Patchy infiltrative changes, this could be pneumonic process, underlying malignancy cannot be ruled out. Assessment and recommendation: 81-year-old male with history of hypertension, recurrent fall. Admitted with the abnormal CT of the chest. Right lung changes noted, and also asbestosis changes noted. The patient is having right lung infiltrative changes in the areas of different locations, less likely malignancy. But cannot be ruled out. Patient may benefit by having a bronchoscopy, to evaluate the infectious process , other malignant process. But the yield will be very less. On other options include, repeat CT scan in 3 months,or outpatient PET scan may be also useful. Meanwhile, currently on antibiotic, bronchodilators. Underlying COPD changes. The lungs noted, given the smoking history, COPD, likely. To continue the current treatment. Will speak to the patient's son. Will follow the patient Past Patient History - Past Medical History & Family History Past Medical History?: Yes - Past Social History Smoking Status: Never Smoked - PULMONARY Hx Chronic Obstructive Pulmonary Disease (COPD): (PNA) - MUSCULOSKELETAL/RHEUMATOLOGICAL Hx Falls: Yes - PSYCHIATRIC Hx Substance Use: No - SURGICAL HISTORY Hx Surgeries: No Meds Allergies/Adverse Reactions: Allergies Allergy/AdvReac Type Severity Reaction Status Date / Time No Known Allergies Allergy Verified 05/28/17 12:43 - Medications Medications: Current Medications Heparin Sodium (Porcine) (Heparin) 5,000 units SC Q12 [facility] Last Admin: 05/31/17 11:07 Dose: 5,000 units Azithromycin 500 mg/ Sodium (Chloride) 250 mls @ 250 mls/hr IVPB DAILY [facility] Last Admin: 05/31/17 11:08 Dose: 250 mls/hr Ceftriaxone Sodium 1 gm/ (Sodium Chloride) 100 mls @ 100 mls/hr IVPB Q12H [facility] Last Admin: 05/31/17 15:02 Dose: 100 mls/hr Primidone (Mysoline) 50 mg PO Q12H [facility] Last Admin: 05/31/17 11:07 Dose: 50 mg Results - Vital Signs Recent Vital Signs: Last Vital Signs Temp 98.0 F 05/31/17 15:00 Pulse 74 05/31/17 15:00 Resp 20 05/31/17 15:00 BP 130/72 05/31/17 15:00 Pulse Ox 95 05/31/17 15:00 - Labs Result Diagrams: 05/31/17 08:47 05/31/17 08:47 Labs: Laboratory Results - last 24 hr 05/31/17 05/31/17 08:47 08:47 WBC 6.6 RBC 4.26 L Hgb 13.4 Hct 39.8 MCV 93.3 MCH 31.4 H MCHC 33.6 RDW 13.3 Plt Count 265 MPV 8.1 Neut % (Auto) 71.2 Lymph % (Auto) 15.2 L [place] % (Auto) 11.8 H Eos % (Auto) 1.3 Baso % (Auto) 0.5 Neut # 4.7 Lymph # 1.0 [place]atte # 0.8 Eos # 0.1 Baso # 0.0 Sodium 138 Potassium 4.0 Chloride 100 Carbon Dioxide 27 Anion Gap 15 BUN 12 Creatinine 0.9 Est GFR ( Amer) > 60 Est GFR (Non-Af Amer) > 60 Random Glucose 136 H Calcium 8.5 L Total Bilirubin 0.8 AST 28 ALT 40 Alkaline Phosphatase 114 Total Protein 7.0 Albumin 3.6 Globulin 3.4 Albumin/Globulin Ratio 1.1
[2017-05-31] MEDS: Albuterol-Ipratrop 3 mg / 0.5 (3 ml) UD INH SCH (17:27)
--- NOTE | 2017-05-31 17:51 | CP.PCM.PN ---
Subjective - Date & Time of Evaluation Date of Evaluation: 05/31/17 Time of Evaluation: 17:51 - Subjective Subjective: CHIEF COMPLAINTS TODAY : afebrile, DENIES CHEST PAIN c/o imbalance and dizziness on ambulation Patient on PT, discussed with ms robledo physical therapist. ROS. HEENT : N. Resp : No wheezing ,pleuritic CP ,or hemoptysis Cardio : No anginal CP, PND, orthopnea, palpitation GI : No abd.pain, n/v ,diarrhea or GI bleeding . 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 Musculoskel : No joint swelling , Derm : No rash Psych : Normal affect. Ext : No swelling ,calf pain PE. Pt. is alert awake in no distress. V.S As noted in the chart Head ,ear nose,throat and eyes : Normal. Neck : Supple with normal carotids. Lungs: few BASILAR RONCHI Heart : S1 & S2 normal with S4. No murmur. Abd : Soft non tender with normal bowel sounds. Neuro : Moves all ext. with no localized deficit. Ext : No edema with intact pulses.Non tender calves Derm : No rashes or decubitus ulcer. LABS/RADIOLOGY: REVIEWED ct CHEST WITH CONTRAST 05/30/17 NOTED aSBESTOSIS AND ASBESTOSIS RELATED PLEURAL DISEASE. 2 NODULAR OPACITIES RIGHT LONG, 1 SPICULATED. cALCIFIED MEDIASTINAL LYMPH NODES QUESTION OF PREVIOUS GRANULOMATOUS DISEASE. mILD DILATATION OF ASCENDING AORTA WITH MAXIMUM DIAMETER 4.1 CM. Objective - Vital Signs/Intake and Output Vital Signs (last 24 hours): Temp Pulse Resp BP Pulse Ox 98.0 F 68 20 130/72 95 05/31/17 15:00 05/31/17 17:32 05/31/17 15:00 05/31/17 15:00 05/31/17 15:00 Intake and Output: 05/31/17 05/31/17 06:59 18:59 Intake Total 340 590 Balance 340 590 - Medications Medications: Current Medications Albuterol/Ipratropium (Duoneb 3 Mg/0.5 Mg (3 Ml) Ud) 3 ml INH RQ8 [facility] Last Admin: 05/31/17 17:27 Dose: 3 ml Heparin Sodium (Porcine) (Heparin) 5,000 units SC Q12 [facility] Last Admin: 05/31/17 11:07 Dose: 5,000 units Azithromycin 500 mg/ Sodium (Chloride) 250 mls @ 250 mls/hr IVPB DAILY [facility] Last Admin: 05/31/17 11:08 Dose: 250 mls/hr Ceftriaxone Sodium 1 gm/ (Sodium Chloride) 100 mls @ 100 mls/hr IVPB Q12H [facility] Last Admin: 05/31/17 15:02 Dose: 100 mls/hr Primidone (Mysoline) 50 mg PO Q12H [facility] Last Admin: 05/31/17 11:07 Dose: 50 mg - Labs Labs: 05/31/17 08:47 05/31/17 08:47 PT 12.4 SECONDS (9.7-12.2) H 05/28/17 13:48 INR 1.1 05/28/17 13:48 APTT 38 SECONDS (21-34) H 05/28/17 13:48 Assessment and Plan (1) Pneumonia Status: Acute (2) Vertigo Status: Acute - Assessment and Plan (Free Text) Plan: pulmonary consult and evaluation in in progress. Dr. Renteria for pulmonary consult. CONTINUE iv ROCEPHIN 1 G EVERY 12 HOURLY. 05/28/17. for 7 days more. CONTINUE iv ZITHROMAX 500 MG ONCE DAILY.05/28/17. DC Zithromax after 5 days of total therapy. Continue nebulizer therapy. CASE DISCUSSED WITH ATTENDING/ SALESPERSON [employer] MS HENAO. .
[2017-06-01] MEDS: Albuterol-Ipratrop 3 mg / 0.5 (3 ml) UD INH SCH ×3 (01:06→15:20)
[2017-06-01 08:55] LABS: BASO % 0.5 % (0.0-2.0); EOS # 0.1 K/uL (0.0-0.7); EOS % 1.6 % (0.0-4.0); HEMATOCRIT 38.6 % (35.0-51.0); LYMPH # 1.1 K/uL (1.0-4.3); LYMPH % 17.4 % (20.0-40.0); MEAN CELL VOLUME 92.6 fL (80.0-94.0); MEAN CORPUSCULAR HEMOGLOBIN 31.2 pg (27.0-31.0); MEAN CORPUSCULAR HGB CONC 33.7 g/dL (33.0-37.0); MEAN PLATELET VOLUME 8.2 fL (7.2-11.7); MONO % 16.4 % (0.0-10.0); NRBC % 0.1 % (0.0-2.0); RED CELL DISTRIBUTION WIDTH 13.3 % (11.5-14.5); WHITE BLOOD COUNT 6.2 K/uL (4.8-10.8)
[2017-06-01 09:05] LABS: CHLORIDE 99 mmol/L (98-107); POTASSIUM 4.6 mmol/L (3.6-5.2); SODIUM 136 mmol/L (132-148)
[2017-06-01 09:08] LABS: ALKALINE PHOSPHATASE 104 U/L (38-126); AST/SGOT 43 U/L (17-59); BILIRUBIN,TOTAL 0.8 mg/dL (0.2-1.3); BLOOD UREA NITROGEN 13 mg/dL (9-20); CALCIUM 8.7 mg/dl (8.6-10.4); CARBON DIOXIDE 27 mmol/L (22-30); GFR AFRICAN-AMERICAN > 60; GLUCOSE,RANDOM 92 mg/dL (75-110); TOTAL PROTEIN 6.7 g/dL (6.3-8.3)
[2017-06-01 09:09] LABS: ALT/SGPT 47 U/L (21-72)
[2017-06-01] MEDS: Azithromycin 500 MG in Sodium Chloride 0.9% 250 ML IVPB SCH (10:43)
--- NOTE | 2017-06-01 13:26 | CP.PCM.DIS ---
Provider - Provider Date of Admission: 05/28/17 14:30 Attending physician: Iman Florez MD Time Spent in preparation of Discharge (in minutes): 35 Hospital Course - Lab Results Lab Results: Micro Results 05/28/17 15:00 Blood-Venous Blood Culture - Preliminary NO GROWTH AFTER 3 DAYS 05/28/17 15:30 Blood-Venous Blood Culture - Preliminary NO GROWTH AFTER 3 DAYS 05/29/17 03:00 Sputum Gram Stain - Final 05/29/17 03:00 Sputum Sputum Culture - Final NORMAL ORAL VIOLETA 05/28/17 22:35 Throat Group A Strep Throat Culture - Final NO BETA STREP GROUP A ISOLATED. Most Recent Lab Values WBC 6.2 K/uL (4.8-10.8) 06/01/17 08:41 RBC 4.17 Mil/uL (4.40-5.90) L 06/01/17 08:41 Hgb 13.0 g/dL (12.0-18.0) 06/01/17 08:41 Hct 38.6 % (35.0-51.0) 06/01/17 08:41 MCV 92.6 fL (80.0-94.0) 06/01/17 08:41 MCH 31.2 pg (27.0-31.0) H 06/01/17 08:41 MCHC 33.7 g/dL (33.0-37.0) 06/01/17 08:41 RDW 13.3 % (11.5-14.5) 06/01/17 08:41 Plt Count 249 K/uL (130-400) 06/01/17 08:41 MPV 8.2 fL (7.2-11.7) 06/01/17 08:41 Neut % (Auto) 64.1 % (50.0-75.0) 06/01/17 08:41 Lymph % (Auto) 17.4 % (20.0-40.0) L 06/01/17 08:41 Payne % (Auto) 16.4 % (0.0-10.0) H 06/01/17 08:41 Eos % (Auto) 1.6 % (0.0-4.0) 06/01/17 08:41 Baso % (Auto) 0.5 % (0.0-2.0) 06/01/17 08:41 Neut # 3.9 K/uL (1.8-7.0) 06/01/17 08:41 Lymph # 1.1 K/uL (1.0-4.3) 06/01/17 08:41 Payne # 1.0 K/uL (0.0-0.8) H 06/01/17 08:41 Eos # 0.1 K/uL (0.0-0.7) 06/01/17 08:41 Baso # 0.0 K/uL (0.0-0.2) 06/01/17 08:41 ESR 56 mm/hr (0-15) H 05/29/17 08:09 PT 12.4 SECONDS (9.7-12.2) H 05/28/17 13:48 INR 1.1 05/28/17 13:48 APTT 38 SECONDS (21-34) H 05/28/17 13:48 Sodium 136 mmol/L (132-148) 06/01/17 08:41 Potassium 4.6 mmol/L (3.6-5.2) 06/01/17 08:41 Chloride 99 mmol/L (98-107) 06/01/17 08:41 Carbon Dioxide 27 mmol/L (22-30) 06/01/17 08:41 Anion Gap 15 (10-20) 06/01/17 08:41 BUN 13 mg/dL (9-20) 06/01/17 08:41 Creatinine 0.7 MG/DL (0.8-1.5) L 06/01/17 08:41 Est GFR ( Amer) > 60 06/01/17 08:41 Est GFR (Non-Af Amer) > 60 06/01/17 08:41 Random Glucose 92 mg/dL (75-110) 06/01/17 08:41 Hemoglobin A1c 5.5 % (4.2-6.5) 05/28/17 13:48 Calcium 8.7 mg/dl (8.6-10.4) 06/01/17 08:41 Total Bilirubin 0.8 mg/dL (0.2-1.3) 06/01/17 08:41 AST 43 U/L (17-59) 06/01/17 08:41 ALT 47 U/L (21-72) 06/01/17 08:41 Alkaline Phosphatase 104 U/L (38-126) 06/01/17 08:41 Total Creatine Kinase 48 U/L (55-170) L 05/29/17 14:38 CK-MB (Mass) 0.78 ng/mL (0.0-3.38) 05/29/17 14:38 Troponin I < 0.0120 ng/mL (0.00-0.120) 05/28/17 13:48 Troponin I, Quant < 0.0120 ng/mL (0.00-0.120) 05/29/17 14:38 C-React Prot High Sens > 15.00 mg/L (1.00-3.00) H 05/29/17 08:09 Total Protein 6.7 g/dL (6.3-8.3) 06/01/17 08:41 Albumin 3.3 g/dL (3.5-5.0) L 06/01/17 08:41 Globulin 3.4 gm/dL (2.2-3.9) 06/01/17 08:41 Albumin/Globulin Ratio 1.0 (1.0-2.1) 06/01/17 08:41 Triglycerides 89 mg/dL (0-149) 05/28/17 13:48 Cholesterol 110 mg/dL (0-199) 05/28/17 13:48 LDL Cholesterol Direct 77 mg/dL (0-129) 05/28/17 13:48 HDL Cholesterol 29 mg/dL (30-70) L 05/28/17 13:48 Urine Color Yellow (YELLOW) 05/28/17 13:48 Urine Clarity Clear (Clear) 05/28/17 13:48 Urine pH 6.0 (5.0-8.0) 05/28/17 13:48 Ur Specific [place] 1.021 (1.003-1.030) 05/28/17 13:48 Urine Protein Negative mg/dL (NEGATIVE) 05/28/17 13:48 Urine Glucose (UA) Normal mg/dL (Normal) 05/28/17 13:48 Urine Ketones Negative mg/dL (NEGATIVE) 05/28/17 13:48 Urine Blood Negative (NEGATIVE) 05/28/17 13:48 Urine Nitrate Negative (NEGATIVE) 05/28/17 13:48 Urine Bilirubin Negative (NEGATIVE) 05/28/17 13:48 Urine Urobilinogen Normal mg/dL (0.2-1.0) 05/28/17 13:48 Ur Leukocyte Esterase Neg Monica/uL (Negative) 05/28/17 13:48 Urine WBC (Auto) 1 /hpf (0-5) 05/28/17 13:48 Urine RBC (Auto) < 1 /hpf (0-3) 05/28/17 13:48 Ur Squamous Epith Cells < 1 /hpf (0-5) 05/28/17 13:48 Influenza Typ A,B (EIA) Negative for flu a/b (NEGATIVE) 05/28/17 22:35 Ur L.pneumophila Ag Negative (NEGATIVE) 05/28/17 20:46 Mycoplasma pneumon IgM Negative (NEGATIVE) 05/29/17 08:09 - Hospital Course Hospital Course: PATIENT IS AN 81 YEARS OLD MALE WITH NO MAJOR HISTORY IN THE PAST HAS A HISTORY OF VERTIGO AND FREQUENT FALLS. RECENTLY PATIENT'S FALL IS INCREASED IN INTENSITY AND SEVERITY. PATIENT ALSO RECENTLY ALSO SEEN BY PMD AND WAS GIVEN ZITHROMAX AND ANTICONGESTIVE MEDICATION. PATIENT IS ALSO COMPLAINING OF UPPER RESPIRATORY TRACT CONGESTION WITH SORE THROAT AND SLIGHT POSTNASAL DRIP. TODAY PATIENT HAD NEAR SYNCOPAL EPISODE WAS FOUND ON THE FLOOR BROUGHT TO THE EMERGENCY ROOM. WORKUP IN THE ER SHOWED PATIENT HAD BILATERAL LOWER LOBE INFILTRATES, NORMAL. CAT SCAN OF THE HEAD AND NO FRACTURES. ID/PULM WERE CONSULTED CT CHEST SOWED NODULES 2.5 CM REC: CT F/U OF NODULES . THERE WERE ALSO CHANGES OF ASBESTOSIS THIS WAS D/W PT'S SON HE REFUSED SHRT TERM REHAB DUE TO EXACERBATION OF VERTIGO . THE FAMILY CALIMED THEY WILL CARE FOR PT AT HOME WITH PHYSICAL CHEMIST PT. IS D/EMANUEL ON PO AB WILL NEED CT OF CHEST IN 3 MONTHS F/U WITH PULM. DR. GRANGER , FOR ASBESTOSIS Discharge Exam - Head Exam Head Exam: NORMAL INSPECTION Discharge Plan - Discharge Medications Prescriptions: Amoxicillin/Clavulanate [Augmentin 875 MG-125 MG] 1 tab PO BID #10 tab Lactobacillus Acidophilus [Bacid Acidophilus] 1 cap PO BID #10 cap - Follow Up Plan Condition: GOOD Disposition: HOME/ ROUTINE
--- NOTE | 2017-06-01 13:29 | CP.PCM.PN ---
Subjective - Date & Time of Evaluation Date of Evaluation: 06/01/17 Time of Evaluation: 15:46 - Subjective Subjective: Alert, awake, no acute distress. Objective - Vital Signs/Intake and Output Vital Signs (last 24 hours): Temp Pulse Resp BP Pulse Ox 98.2 F 59 L 20 129/81 100 06/01/17 08:21 06/01/17 08:21 06/01/17 08:21 06/01/17 08:21 06/01/17 08:21 Intake and Output: 06/01/17 06/01/17 06:59 18:59 Intake Total 900 Balance 900 - Medications Medications: Current Medications Albuterol/Ipratropium (Duoneb 3 Mg/0.5 Mg (3 Ml) Ud) 3 ml INH RQ8 [facility] Last Admin: 06/01/17 07:46 Dose: 3 ml Heparin Sodium (Porcine) (Heparin) 5,000 units SC Q12 [facility] Last Admin: 06/01/17 10:45 Dose: 5,000 units Azithromycin 500 mg/ Sodium (Chloride) 250 mls @ 250 mls/hr IVPB DAILY [facility] Last Admin: 06/01/17 10:43 Dose: 250 mls/hr Ceftriaxone Sodium 1 gm/ (Sodium Chloride) 100 mls @ 100 mls/hr IVPB Q12H [facility] Last Admin: 06/01/17 03:00 Dose: 100 mls/hr Primidone (Mysoline) 50 mg PO Q12H [facility] Last Admin: 06/01/17 11:15 Dose: 50 mg - Labs Labs: 06/01/17 08:41 06/01/17 08:41 PT 12.4 SECONDS (9.7-12.2) H 05/28/17 13:48 INR 1.1 05/28/17 13:48 APTT 38 SECONDS (21-34) H 05/28/17 13:48 Assessment and Plan - Assessment and Plan (Free Text) Assessment: Patient is seen and examined. Denies any pain or distress. Alert, awake, follows commands. D/W DR Florez and DR Mathew, plan to discharge home with family with home PT via [facility], home care arranged. Augmentin and bacid for 5 days given. To follow up in the office in 1 week.
[2017-06-01 16:25] VITALS: BP 150/88; PULSE 68; TEMP 98; O2SAT 96
--- NOTE | 2017-06-04 11:38 | VASCLAB ---
PROCEDURE: HISTORY: SYNCOPY COMPARISON: None available. TECHNIQUE: Grayscale and duplex Doppler evaluation of the cervical carotid and vertebral arteries were performed. The common carotid, carotid bifurcations and cervical Internal Carotid Artery (ICA) and proximal External Carotid Artery (ECA) were evaluated. The vertebral arteries were evaluated for gross patency and flow direction. Report prepared by Yunior Angel, BS, RVT FINDINGS: RIGHT CAROTID ARTERIES: 1. Common Carotid Artery: No significant focal plaque formation of the right common carotid artery. Maximum Peak Systolic velocity: 79 cm/sec: End-diastolic velocity 22 cm/sec. 2. Carotid Bifurcation: plaque formation. Maximum Peak Systolic velocity: 68 cm/sec: End-diastolic velocity 15 cm/sec. 3. Internal Carotid Artery: Plaque description: 3.1. Proximal Segment: Peak systolic velocity 69 cm/sec: End-diastolic velocity 20 cm/sec - % stenosis 0-15% 3.2. Middle Segment: Peak systolic velocity 59 cm/sec: End-diastolic velocity 21 cm/sec - % stenosis 0-15% 3.3. Distal Segment: Peak systolic velocity 68 cm/sec: End-diastolic velocity 24 cm/sec - % stenosis 0-15% 4. External Carotid Artery: No significant focal plaque formation. Peak systolic velocity 73 cm/sec 5. ICA/CCA Ratio: 0.9 LEFT CAROTID ARTERIES: 1. Common Carotid Artery: No significant focal plaque formation of the left common carotid artery. Maximum Peak Systolic velocity: 82 cm/sec: End-diastolic velocity 15 cm/sec. 2. Carotid Bifurcation: plaque formation. Maximum Peak Systolic velocity: 79 cm/sec: End-diastolic velocity 18 cm/sec. 3. Internal Carotid Artery: Plaque description: 3.1. Proximal Segment: Peak systolic velocity 73 cm/sec: End-diastolic velocity 24 cm/sec - % stenosis 0-15% 3.2. Middle Segment: Peak systolic velocity 66 cm/sec: End-diastolic velocity 19 cm/sec - % stenosis 0-15% 3.3. Distal Segment: Peak systolic velocity 70 cm/sec: End-diastolic velocity 21 cm/sec - % stenosis 0-15% 4. External Carotid Artery: No significant focal plaque formation. Peak systolic velocity 86 cm/sec 5. ICA/CCA Ratio: 1.0 VERTEBRAL ARTERIES: 1. Right Vertebral Artery: The right vertebral artery flow direction is antegrade. 2. Left Vertebral Artery: The left vertebral artery flow direction is antegrade. OTHER FINDINGS: 1. Right Brachial Blood pressure: 138 mmHg. 2. Left Brachial Blood pressure: 124 mmHg. IMPRESSION: RIGHT: Duplex scan does not suggest hemodynamically significant stenosis of the right extracranial carotid arteries. LEFT: Duplex scan does not suggest hemodynamically significant stenosis of the left extracranial carotid arteries.
--- NOTE | 2017-06-04 22:03 | CP.PCM.PN ---
Subjective - Date & Time of Evaluation Date of Evaluation: 06/01/17 Time of Evaluation: 16:00 - Subjective Subjective: Examined the patient. Clinically he is stable. He denies any chest pain or shortness of breath, mild cough noted, wheezing minimally noted Vital signs reviewed No neck vein distention noted Chest good air entry bilaterally, no wheezing or rales noted CVS regular heart sound, no murmur noted Abdomen soft, nontender. Extremities no pedal edema TISSUE REWINDER alert awake oriented 3, no functional neurological deficit Spoke to the patient in detail. Patient possibly discharged home today. I will follow the patient as an outpatient for further management, and also follow-up CAT scan. Objective - Vital Signs/Intake and Output Vital Signs (last 24 hours): Temp Pulse Resp BP Pulse Ox 98 F 68 20 150/88 96 06/01/17 16:00 06/01/17 16:00 06/01/17 16:00 06/01/17 16:00 06/01/17 16:00 - Labs Labs: 06/01/17 08:41 06/01/17 08:41 PT 12.4 SECONDS (9.7-12.2) H 05/28/17 13:48 INR 1.1 05/28/17 13:48 APTT 38 SECONDS (21-34) H 05/28/17 13:48
== END 2017-06-01 16:57 | disposition home or self-care (01) | DRG 190 ==
LOC: C.ER 12:05 → C.9E 14:30 → C.3T 18:50
PROVIDERS: ADMIT Internal Medicine Cardiovascular Disease; ATTEND Internal Medicine Cardiovascular Disease
DX: J44.0 Chronic obstructive pulmonary disease with (acute) lower respiratory infection (principal); J18.9 Pneumonia, unspecified organism; S09.90XA Unspecified injury of head, initial encounter; W06.XXXA Fall from bed, initial encounter; R29.6 Repeated falls; R42 Dizziness and giddiness; R55 Syncope and collapse; Z77.090 Contact with and (suspected) exposure to asbestos; I10 Essential (primary) hypertension; Z87.891 Personal history of nicotine dependence; R09.82 Postnasal drip